=== PATIENT | female | born 1965 | race Caucasian/White ===

== ENCOUNTER → 2022-06-01 | Outpatient (CLI) | payer SELFPAY ==
--- NOTE | 2022-06-01 13:49 | NEURO_ITS ---
NCS and/or EMG Patient Report Ordering Doctor: MAUREEN ESPINOZA DATE OF SERVICE: 06/01/22 Rolanda presents for electrodiagnostic testing of the lower limbs. She reports numbness over the 1st and 2nd toes on the left foot. Intermittent lower back pain. Electrodiagnostic Findings: Testing performed in the lower limbs. Peroneal motor nerve demonstrates normal distal latency, amplitude and conduction velocity bilaterally. Normal tibial motor response bilaterally. Normal tibial and peroneal F waves. Sensory responses are within normal limits. H reflex within normal limits bilaterally. On needle EMG, 1+ fibrillations are noted in the left gastrocnemius and left lumbosacral paraspinals. Motor unit action p otentials of normal amplitude and duration. Electrodiagnostic impression: This is an abnormal study in the lower limbs. 1. Electrodiagnostic findings suggestive of an acute left S1 radiculopathy. C onsider correlation with lumbar spine imaging. 2. There is no electrodiagnostic evidence for peripheral neuropathy.
== END | disposition home or self-care (01) ==
PROVIDERS: Referring Provider Podiatrist; Visit Provider Psychiatry & Neurology Neurology
DX: R26.81 Unsteadiness on feet (principal)
CPT/HCPCS: 95886; 95911